=== PATIENT | female | born 2000 | race Two or more races ===

== ENCOUNTER 2021-03-04 12:31 | Inpatient (IN) | payer MEDICAID, OTHER ==
[~2021-03-04] VITALS: Ht 170.2 cm; Wt 82.7 kg
[2021-03-04] MEDS ORDERED: KETOROLAC TROMETH 30 MG/ML 1ML VIAL IV ONE (16:00)
[2021-03-04] MEDS ORDERED: metroNIDAZOLE 500MG/100ML 100 ML IV ONE (16:00)
[2021-03-04] MEDS ORDERED: ONDANSETRON HCL 4 MG/2 ML VIAL IV ONE (16:00)
[2021-03-04] MEDS ORDERED: SODIUM CHLORIDE 0.9% 1,000 ML IV ONE (16:00)
[2021-03-04] MEDS ORDERED: cefTRIAXone 1GM/50ML D5W 50 ML IV ONE (16:00)
[2021-03-04 16:43] LABS: Eosinophils # (auto) 0 10 ^3/uL (0-0.8); Monocytes # (auto) 0.7 10 ^3/uL (0-1.3); Neutrophils % (auto) 82.8 % (37.0-80.0)
[2021-03-04 16:48] LABS: Basophils # (auto) 0 10 ^3/uL (0-0.2); Basophils % (auto) 0.4 % (0.0-2.0); Eosinophils % (auto) 0.2 % (0.0-7.0); Hematocrit 40.1 % (36.0-46.0); Hemoglobin 12.8 g/dL (12.2-16.2); Lymphocytes # (auto) 1.3 10 ^3/uL (0.4-5.4); Lymphocytes % (auto) 10.8 % (10.0-50.0); Mean Corpuscular Hemoglobin 23.7 pg (28.0-32.0); Mean Corpuscular Volume 73.9 fL (80.0-100.0); Monocytes % (auto) 5.8 % (0.0-12.0); Neutrophils # (auto) 10.3 10 ^3/uL (1.6-8.6); Nucleated Red Blood Cells % 0.1 %; Platelet Count (auto) 382 10^3/uL (140-450); Red Blood Cells 5.42 10^6/uL (4.0-5.20); Red Cell Distribution Width 14.6 % (11.8-14.3); White Blood Cell 12.4 10^3/uL (4.4-10.8)
[2021-03-04 16:51] LABS: Albumin 4.4 g/dL (3.4-5.0); Potassium 3.8 mmol/L (3.5-5.1)
[2021-03-04 16:54] LABS: BUN/Creatinine Ratio 9.5; Bilirubin, Total 0.6 mg/dL (0.2-1.0); Total Protein 8.8 g/dL (6.4-8.2)
[2021-03-04] MEDS ORDERED: traMADol HCL 50 MG TAB PO PRN (17:00)
[2021-03-04] MEDS ORDERED: LACTULOSE 20Gm/30ML SOLN PO PRN (17:00)
[2021-03-04] MEDS ORDERED: NITROGLYCERIN 0.4 MG SL TAB SL PRN (17:00)
[2021-03-04] MEDS ORDERED: ALBUTEROL SULF 2.5 MG/0.5ML(0.5%) NEB SOLN NEB PRN (17:00)
[2021-03-04] MEDS ORDERED: PROMETHAZINE HCL 25 MG/ML 1ML IV PRN (17:00)
[2021-03-04] MEDS ORDERED: MORPHINE SULF INJ 2 MG/ML SYRINGE 1ML IV PRN ×2 (17:00)
[2021-03-04] MEDS ORDERED: levoFLOXacin 500MG 100 ML IV ONE (17:00)
[2021-03-04] MEDS: FAMOTIDINE (10MG/ML) 2ML VL IV SCH (17:00)
[2021-03-04] MEDS ORDERED: ACETAMINOPHEN 500 MG TAB PO PRN (17:00)
[2021-03-04] MEDS: SODIUM CHLORIDE 0.9% 1,000 ML IV SCH (17:55)
[2021-03-04 18:13] VITALS: BP 142/74
[2021-03-04 20:00] VITALS: BP 140/89
[2021-03-04 21:27] LABS: Urine Bacteria NONE SEEN /hpf (None Seen); Urine Blood 3+ /uL (Negative); Urine Specific Gravity 1.017 (1.001-1.035); Urine WBC 4 /hpf (0 - 5)
[2021-03-04] MEDS: metroNIDAZOLE 500MG/100ML 100 ML IV SCH (21:39)
[2021-03-04 21:41] VITALS: BP 140/89
[2021-03-05] MEDS: SODIUM CHLORIDE 0.9% 1,000 ML IV SCH ×3 (04:41→14:52)
[2021-03-05] MEDS: FAMOTIDINE (10MG/ML) 2ML VL IV SCH ×2 (04:41→16:26)
[2021-03-05 05:29] VITALS: BP 98/57
[2021-03-05] MEDS: metroNIDAZOLE 500MG/100ML 100 ML IV SCH ×3 (06:08→21:08)
[2021-03-05 07:27] LABS: Basophils # (auto) 0 10 ^3/uL (0-0.2); Basophils % (auto) 0.6 % (0.0-2.0); Eosinophils # (auto) 0.1 10 ^3/uL (0-0.8); Hemoglobin 11.8 g/dL (12.2-16.2); Lymphocytes # (auto) 1.7 10 ^3/uL (0.4-5.4); Monocytes # (auto) 0.6 10 ^3/uL (0-1.3); Neutrophils # (auto) 3.7 10 ^3/uL (1.6-8.6)
[2021-03-05 07:29] LABS: Eosinophils % (auto) 1.2 % (0.0-7.0); Hematocrit 36.1 % (36.0-46.0); Lymphocytes % (auto) 28.1 % (10.0-50.0); Mean Corpuscular Hemoglobin 24.2 pg (28.0-32.0); Mean Corpuscular Hgb Conc. 32.6 g/dL (32.0-36.0); Mean Corpuscular Volume 74.3 fL (80.0-100.0); Monocytes % (auto) 9.2 % (0.0-12.0); Neutrophils % (auto) 60.9 % (37.0-80.0); Platelet Count (auto) 308 10^3/uL (140-450); Red Blood Cells 4.86 10^6/uL (4.0-5.20); Red Cell Distribution Width 14.6 % (11.8-14.3); White Blood Cell 6.1 10^3/uL (4.4-10.8)
[2021-03-05 07:44] LABS: Potassium 3.6 mmol/L (3.5-5.1)
[2021-03-05 07:50] LABS: Albumin 3.5 g/dL (3.4-5.0); BUN/Creatinine Ratio 9.4; Bilirubin, Total 0.6 mg/dL (0.2-1.0); Calcium 8.4 mg/dL (8.5-10.1)
[2021-03-05 09:00] VITALS: BP 122/68
[2021-03-05] MEDS: levoFLOXacin 500MG 100 ML IV SCH (09:32)
[2021-03-05 13:00] VITALS: BP 128/71
[2021-03-05] MEDS ORDERED: ACETAMINOPHEN 500 MG TAB PO PRN (14:00)
[2021-03-05] MEDS ORDERED: DexAMETHasone SOD PHOS 10MG/1ML VIAL INJ IV ONE (14:00)
[2021-03-05] MEDS ORDERED: REMDESIVIR PER PHARMACY 0 ML IV SCH (14:00)
[2021-03-05] MEDS ORDERED: REMDESIVIR 200 MG in NS 210ml LOADING DOSE ADULT IV ONE (15:00)
[2021-03-05] MEDS: ALBUTEROL SULF HFA 90MCG INH 200DOSE IN PRN ×2 (15:03→22:46)
[2021-03-05 17:00] VITALS: BP 144/82
[2021-03-05 21:40] VITALS: BP 126/75
[2021-03-05] MEDS: ENOXAPARIN SOD 40 MG/0.4 ML SYRINGE SC SCH (21:42)
[2021-03-05] MEDS: BUDESONIDE (INHALATION) 180 MCG IH IN SCH (22:47)
[2021-03-06 05:29] VITALS: BP 112/59
[2021-03-06] MEDS: FAMOTIDINE (10MG/ML) 2ML VL IV SCH ×2 (05:29→17:16)
[2021-03-06] MEDS: metroNIDAZOLE 500MG/100ML 100 ML IV SCH ×3 (06:03→21:43)
[2021-03-06 06:33] LABS: Basophils # (auto) 0 10 ^3/uL (0-0.2); Eosinophils # (auto) 0 10 ^3/uL (0-0.8); Lymphocytes # (auto) 1.1 10 ^3/uL (0.4-5.4); Monocytes # (auto) 0.3 10 ^3/uL (0-1.3); Nucleated Red Blood Cells % 0.1 %; Platelet Count (auto) 343 10^3/uL (140-450); White Blood Cell 6.8 10^3/uL (4.4-10.8)
[2021-03-06 06:35] LABS: Basophils % (auto) 0.2 % (0.0-2.0); Hematocrit 35.7 % (36.0-46.0); Hemoglobin 11.9 g/dL (12.2-16.2); Lymphocytes % (auto) 16.4 % (10.0-50.0); Mean Corpuscular Hemoglobin 24.6 pg (28.0-32.0); Mean Corpuscular Hgb Conc. 33.2 g/dL (32.0-36.0); Mean Corpuscular Volume 74.1 fL (80.0-100.0); Monocytes % (auto) 3.8 % (0.0-12.0); Neutrophils # (auto) 5.4 10 ^3/uL (1.6-8.6); Neutrophils % (auto) 79.6 % (37.0-80.0); Red Blood Cells 4.82 10^6/uL (4.0-5.20); Red Cell Distribution Width 14.5 % (11.8-14.3)
[2021-03-06 06:46] LABS: INR 1.1 (0.9-1.15)
[2021-03-06 06:49] LABS: Calcium 9.1 mg/dL (8.5-10.1); Magnesium 2.3 mg/dL (1.6-2.6); Potassium 3.6 mmol/L (3.5-5.1)
[2021-03-06 06:56] LABS: BUN/Creatinine Ratio 8.2; Bilirubin, Total 0.4 mg/dL (0.2-1.0); CRP High Sensitivity 0.76 mg/dL (< 0.3); Total Protein 7.8 g/dL (6.4-8.2)
[2021-03-06] MEDS: ALBUTEROL SULF HFA 90MCG INH 200DOSE IN PRN ×2 (06:56→22:16)
[2021-03-06] MEDS: BUDESONIDE (INHALATION) 180 MCG IH IN SCH ×2 (06:57→22:17)
[2021-03-06] MEDS ORDERED: IVERMECTIN 3 MG TAB PO ONE (07:00)
[2021-03-06 09:00] VITALS: BP 140/82
[2021-03-06] MEDS: SODIUM CHLORIDE 0.9% 1,000 ML IV SCH (10:24)
[2021-03-06] MEDS: DexAMETHasone SOD PHOS 10MG/1ML VIAL INJ IV SCH (10:24)
[2021-03-06] MEDS: levoFLOXacin 500MG 100 ML IV SCH (10:24)
[2021-03-06] MEDS: ENOXAPARIN SOD 40 MG/0.4 ML SYRINGE SC SCH ×2 (10:25→21:42)
[2021-03-06] MEDS: ZINC SULFATE 220mg CAP or TAB PO SCH (10:25)
[2021-03-06] MEDS: FLORASTOR (S. BOULARDII) 250 MG CAP PO SCH (10:25)
[2021-03-06] MEDS: CHOLECALCIFEROL (VITD3) 2,000 UNIT CAP/TAB PO SCH (10:25)
[2021-03-06 13:00] VITALS: BP 104/61
[2021-03-06] MEDS ORDERED: ERGOCALCIFEROL 50,000 UNIT(1.25MG) CAP PO SCH (14:30)
[2021-03-06] MEDS: REMDESIVIR 100mg 100 MG in SODIUM CHL 0.9% 230 ML IV SCH (15:06)
[2021-03-06 17:00] VITALS: BP 124/85
[2021-03-06 22:00] VITALS: BP 128/75
[2021-03-07] VITALS (7 sets, daily range): BP systolic 117–134; BP diastolic 62–80
[2021-03-07] MEDS: metroNIDAZOLE 500MG/100ML 100 ML IV SCH ×3 (05:31→22:39)
[2021-03-07] MEDS: FAMOTIDINE (10MG/ML) 2ML VL IV SCH ×2 (05:31→17:18)
[2021-03-07] MEDS: ALBUTEROL SULF HFA 90MCG INH 200DOSE IN PRN ×2 (06:20→23:54)
[2021-03-07] MEDS: BUDESONIDE (INHALATION) 180 MCG IH IN SCH ×2 (06:21→23:54)
[2021-03-07] MEDS: levoFLOXacin 500MG 100 ML IV SCH (09:02)
[2021-03-07] MEDS: DexAMETHasone SOD PHOS 10MG/1ML VIAL INJ IV SCH (09:02)
[2021-03-07] MEDS: ZINC SULFATE 220mg CAP or TAB PO SCH (09:05)
[2021-03-07] MEDS: FLORASTOR (S. BOULARDII) 250 MG CAP PO SCH (09:06)
[2021-03-07] MEDS: ENOXAPARIN SOD 40 MG/0.4 ML SYRINGE SC SCH ×2 (09:06→22:39)
[2021-03-07] MEDS: CHOLECALCIFEROL (VITD3) 2,000 UNIT CAP/TAB PO SCH (09:06)
[2021-03-07 11:00] LABS: Albumin 3.7 g/dL (3.4-5.0); Calcium 8.3 mg/dL (8.5-10.1)
[2021-03-07 11:04] LABS: BUN/Creatinine Ratio 11.3; Bilirubin, Total 0.4 mg/dL (0.2-1.0); Total Protein 7.2 g/dL (6.4-8.2)
[2021-03-07] MEDS ORDERED: POTASSIUM CHL 20 Meq TABLET PO ONE (14:15)
[2021-03-07] MEDS ORDERED: OPTISON 3ml Vial for INJ IV ONE (14:34)
[2021-03-07] MEDS: REMDESIVIR 100mg 100 MG in SODIUM CHL 0.9% 230 ML IV SCH (15:54)
[2021-03-08 05:00] VITALS: BP 100/60
[2021-03-08] MEDS: FAMOTIDINE (10MG/ML) 2ML VL IV SCH ×2 (05:35→18:50)
[2021-03-08] MEDS: metroNIDAZOLE 500MG/100ML 100 ML IV SCH (05:36)
[2021-03-08 06:47] LABS: Magnesium 2.4 mg/dL (1.6-2.6); Potassium 3.3 mmol/L (3.5-5.1)
[2021-03-08 09:00] VITALS: BP 131/66
[2021-03-08] MEDS: ALBUTEROL SULF HFA 90MCG INH 200DOSE IN PRN (09:20)
[2021-03-08] MEDS: BUDESONIDE (INHALATION) 180 MCG IH IN SCH ×2 (09:20→18:36)
[2021-03-08] MEDS: DexAMETHasone SOD PHOS 10MG/1ML VIAL INJ IV SCH (09:26)
[2021-03-08] MEDS: levoFLOXacin 500MG 100 ML IV SCH (09:27)
[2021-03-08] MEDS: ENOXAPARIN SOD 40 MG/0.4 ML SYRINGE SC SCH (09:29)
[2021-03-08] MEDS: CHOLECALCIFEROL (VITD3) 2,000 UNIT CAP/TAB PO SCH (09:29)
[2021-03-08] MEDS: ZINC SULFATE 220mg CAP or TAB PO SCH (09:29)
[2021-03-08] MEDS: FLORASTOR (S. BOULARDII) 250 MG CAP PO SCH (09:30)
[2021-03-08] MEDS ORDERED: POTASSIUM CHL 20 Meq TABLET PO ONE (12:00)
[2021-03-08 13:00] VITALS: BP 122/70
[2021-03-08] MEDS: metroNIDAZOLE 500 MG TAB PO SCH ×2 (14:35→21:13)
[2021-03-08] MEDS: REMDESIVIR 100mg 100 MG in SODIUM CHL 0.9% 230 ML IV SCH (15:25)
[2021-03-08 17:00] VITALS: BP 117/69
[2021-03-08 22:00] VITALS: BP 113/73
[2021-03-09 05:24] VITALS: BP 101/50
[2021-03-09] MEDS: FAMOTIDINE (10MG/ML) 2ML VL IV SCH ×2 (05:57→17:00)
[2021-03-09] MEDS: metroNIDAZOLE 500 MG TAB PO SCH ×2 (06:40→14:00)
[2021-03-09] MEDS: ALBUTEROL SULF HFA 90MCG INH 200DOSE IN PRN (06:50)
[2021-03-09] MEDS: BUDESONIDE (INHALATION) 180 MCG IH IN SCH (06:50)
[2021-03-09 08:01] LABS: Hematocrit 36.7 % (36.0-46.0); Hemoglobin 11.9 g/dL (12.2-16.2); Potassium 3.2 mmol/L (3.5-5.1)
[2021-03-09 08:07] LABS: Albumin 3.8 g/dL (3.4-5.0); Bilirubin, Direct 0.2 mg/dL (0-0.2); Bilirubin, Total 0.4 mg/dL (0.2-1.0); Magnesium 2.4 mg/dL (1.6-2.6); Total Protein 7.3 g/dL (6.4-8.2)
[2021-03-09 08:45] VITALS: BP 117/65
[2021-03-09] MEDS: DexAMETHasone SOD PHOS 10MG/1ML VIAL INJ IV SCH (09:31)
[2021-03-09] MEDS: ZINC SULFATE 220mg CAP or TAB PO SCH (09:31)
[2021-03-09] MEDS: FLORASTOR (S. BOULARDII) 250 MG CAP PO SCH (09:31)
[2021-03-09] MEDS: CHOLECALCIFEROL (VITD3) 2,000 UNIT CAP/TAB PO SCH (09:32)
[2021-03-09] MEDS ORDERED: POTASSIUM CHL 20 Meq TABLET PO ONE (09:45)
[2021-03-09] MEDS ORDERED: levoFLOXacin 500 MG TAB PO SCH (10:00)
[2021-03-09] MEDS ORDERED: ENOXAPARIN SOD 40 MG/0.4 ML SYRINGE SC SCH (10:00)
[2021-03-09] MEDS ORDERED: LEVO500T31 PO (12:34)
[2021-03-09] MEDS ORDERED: ASCO100076 PO (12:37)
[2021-03-09] MEDS ORDERED: ALBUAER3 IN (12:37)
[2021-03-09] MEDS ORDERED: CHOL1CAP47 PO (12:37)
[2021-03-09] MEDS ORDERED: ZINC220T6 PO (12:37)
[2021-03-09] MEDS ORDERED: METH4PAK PO (12:37)
[2021-03-09] MEDS ORDERED: METR500T PO (12:37)
[2021-03-09] MEDS ORDERED: FAMO20TA10 PO (12:40)
[2021-03-09] MEDS ORDERED: ASPI-378 PO (12:40)
[2021-03-09 12:59] VITALS: BP 119/71
[2021-03-09] MEDS: REMDESIVIR 100mg 100 MG in SODIUM CHL 0.9% 230 ML IV SCH (15:06)
[2021-03-09 16:49] VITALS: BP 112/68
== END 2021-03-09 21:40 | disposition home or self-care (01) ==
LOC: ER 12:31 → TELE 16:52 → TELE-EAST 18:28
PROVIDERS: ADMIT Internal Medicine; ATTEND Internal Medicine
PROC: XW033E5 Introduction of Remdesivir Anti-infective into Peripheral Vein, Percutaneous Approach, New Technology Group 5 (ICD-10-PCS; principal; 2021-03-05)
DX: K80.00 Calculus of gallbladder with acute cholecystitis without obstruction (principal); U07.1 COVID-19; R65.10 Systemic inflammatory response syndrome (SIRS) of non-infectious origin without acute organ dysfunction; J12.82 Pneumonia due to coronavirus disease 2019; K76.0 Fatty (change of) liver, not elsewhere classified; E66.3 Overweight; E55.9 Vitamin D deficiency, unspecified; E87.6 Hypokalemia; Z68.29 Body mass index [BMI] 29.0-29.9, adult; Z83.3 Family history of diabetes mellitus
CPT/HCPCS: 36415; 71046; 71250; 74176; 76705; 80053; 80076; 81001; 82150; 82306; 82728; 83615; 83690; 83735; 84132; 84443; 84702; 85014; 85018; 85025; 85379; 85610; 86141; 87426; 94640; 96365; G0378; J0696; J1100; J1885; J1956; J3490; Q9956